=== PATIENT | male | born 2000 ===

== ENCOUNTER 2021-05-05 08:00 | Outpatient (CLI) | payer OTHER | END 2021-05-05 23:59 | LOC: LAB.N 08:00 | PROVIDERS: ATTEND Physician Assistant Medical | DX: U07.1 COVID-19 (principal) ==

== ENCOUNTER 2022-08-05 14:53 | Emergency (ER) | payer OTHER ==
[2022-08-05 15:24] LABS: RAPID STREP SCREEN Negative (Negative)
--- NOTE | 2022-08-05 15:33 | ED Physician Documentation ---
History of Present Illness - Stated complaint Stated Complaint: BACK PX, SWOLLEN THRT - Chief complaint Chief Complaint: Back Pain - History obtained from History obtained from: Patient - Additonal information Additional information: Otherwise healthy two 21-year-old gentleman who is active duty in the [employer] presents for seemingly 2 separate complaints: 1. He has had a sore throat for about a week. At the beginning he had fevers and body aches. He went to the clinic and tested negative for strep. He is worried specifically that his sore throat is caused by HSV because he has sores in his throat. 2. 2 days of left mid back pain worse with bending or twisting. It is not associated with shortness of breath. PD PAST MEDICAL HISTORY - Past Medical History Past Medical History: No Cardiovascular: None Respiratory: None Neuro: None Endocrine/Autoimmune: None GI: None : None HEENT: None Psych: None Musculoskeletal: None Derm: None - Past Surgical History Past Surgical History: No - Present Medications Home Medications: Ambulatory Orders Medication Instructions Recorded Confirmed Cyclobenzaprine [Flexeril] 10 mg PO TID PRN #10 tablet 08/05/22 Ibuprofen [Motrin] 800 mg PO Q8H PRN #30 tablet 08/05/22 predniSONE [Deltasone] 60 mg PO DAILY 5 Days #15 tablet 08/05/22 - Allergies Allergies/Adverse Reactions: Allergies Allergy/AdvReac Type Severity Reaction Status Date / Time No Known Drug Allergies Allergy Verified 08/05/22 15:09 - Social History Does the pt smoke?: No Smoking Status: Never smoker Does the pt drink ETOH?: Yes Does the pt have substance abuse?: No - Immunizations Immunizations are current?: Yes - POLST Patient has POLST: No PD ED PE NORMAL - Vitals Vital signs reviewed: Yes - General General: Alert and oriented X 3, No acute distress - HEENT HEENT: Other (He has red tonsillar pillars and retropharynx without swelling and numerous very small ulcers especially on the soft palate. These are bilateral.) - Neck Neck: Supple, no meningeal sign, No bony TTP - Cardiac Cardiac: RRR, No murmur - Respiratory Respiratory: No respiratory distress, Clear bilaterally - Abdomen Abdomen: Non tender - Back Back: Other (Muscular tenderness of the left parathoracic musculature low down without midline spinal tenderness. No rash in the area.) - Neuro Neuro: Alert and oriented X 3, Normal speech - Psych Psych: Normal mood, Normal affect Results - Vitals Vitals: Vital Signs - 24 hr 08/05/22 08/05/22 14:57 15:17 Temperature 36.1 C L Heart Rate 82 Respiratory 17 16 Rate Blood Pressure 144/75 H O2 Saturation 99 Oxygen O2 Source Room air - Labs Labs: Laboratory Tests 08/05/22 15:06 Group A Strep Rapid Negative PD Medical Decision Making - ED course ED course: Back pain seems uncomplicated, will treat with muscle relaxers and NSAIDs. The sore throat looks viral. He is already tested negative for strep and this was repeated here and rapid strep was negative. We will treat with steroids and per his request an HSV PCR swab was done. Departure - Departure Disposition: 01 Home, Self Care Clinical Impression: Viral pharyngitis, Back pain Condition: Good Record reviewed to determine appropriate education?: Yes Instructions: ED Neck Back Pain General, ED Pharyngitis Viral Report Pending Prescriptions: predniSONE [Deltasone] 60 mg PO DAILY 5 Days #15 tablet Cyclobenzaprine [Flexeril] 10 mg PO TID PRN #10 tablet PRN Reason: Spasms Ibuprofen [Motrin] 800 mg PO Q8H PRN #30 tablet PRN Reason: PAIN &/OR FEVER Comments: You do you have an HSV PCR pending. We do not usually follow up on these, but you can go to the Hospital website at [email or web address] and sign in for the patient portal and look up results there. Return if worse. 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
[2022-08-05 15:39] VITALS: BP 134/68
[2022-08-07 06:10] LABS: HSV-1 DNA Negative (Negative); HSV-2 DNA Negative (Negative)
== END 2022-08-05 15:38 | disposition home or self-care (01) ==
LOC: ED 14:53
DX: J02.8 Acute pharyngitis due to other specified organisms (principal); M54.6 Pain in thoracic spine
CPT/HCPCS: 87070; 87077; 87430; 87529; 99283